=== PATIENT | female | born 1980 | race African-American/Black ===

== ENCOUNTER 2022-12-07 14:18 | Emergency (ER) | payer MEDICAID, OTHER ==
[~2022-12-07] VITALS: Ht 162.6 cm; Wt 87.0 kg
[2022-12-07 14:33] VITALS: BP 104/77
[2022-12-07] MEDS ORDERED: ACETAMINOPHEN 500MG TABLET PO ONE (15:00)
[2022-12-07] MEDS ORDERED: PREDNISONE 20MG TABLET PO ONE (15:00)
[2022-12-07] MEDS ORDERED: ALBUTEROL (0.083%) 2.5MG/3ML NEB HHN ONE (15:00)
[2022-12-07] MEDS ORDERED: ACET-2708 MT (17:02)
[2022-12-07] MEDS ORDERED: ALBU18HF2 IH (17:02)
[2022-12-07] MEDS ORDERED: P50 MT (17:02)
== END 2022-12-07 17:29 | disposition home or self-care (01) ==
LOC: ER 15:46
DX: J45.909 Unspecified asthma, uncomplicated (principal); B34.9 Viral infection, unspecified; Z88.6 Allergy status to analgesic agent
CPT/HCPCS: 71045; 81025; 94640; 99283; J7512; Z7610